=== PATIENT | male | born 1960 | race Caucasian/White ===

== ENCOUNTER 2017-01-02 14:04 | Outpatient (CLI) | payer OTHER ==
--- NOTE | 2017-01-02 15:39 | DIAGNOSTIC IMAGING REPORT ---
PROCEDURE: CT THORAX WITHOUT CONTRAST INDICATION: CHEST NODULE TECHNIQUE: Noncontrast axial images were obtained of the chest with coronal and sagittal reformations. COMPARISON: Chest CT 12/18/2015. FINDINGS: Stable 3 mm peripheral right upper lobe (image 28) and 5 mm right middle lobe nodules. No adenopathy or effusion. Mild atherosclerosis of the aorta and the coronaries. Normal heart size. Stable thyroid nodules. Gastric sleeve procedure. Stable mild upper thoracic spine compression fractures. Moderate degenerative changes. IMPRESSION: 1. Stable 3 mm right upper lobe and 5 ml right middle lobe nodules, likely postinflammatory. Recommend follow-up chest CT in 1 year.
--- NOTE | 2017-01-02 16:02 | DIAGNOSTIC IMAGING REPORT ---
PROCEDURE: US SOFT TISSUE THYR/NECK/HEAD INDICATION: MULTI THYROID NODULES TECHNIQUE: Mendoza scale and color Doppler sonographic images of the thyroid gland were obtained. COMPARISON: Thyroid ultrasound 12/24/2015. FINDINGS: RIGHT LOBE: Measures 5.3 x 2.7 x 2.2 cm. There is a at 2.5 x 1.9 x 1.9 cm complex nodule, primarily hypoechoic and solid with a central cystic component (previously 2.3 x 1.9 x 1.9 cm). There is also stable 4 mm hypoechoic nodule in the upper pole. LEFT LOBE: Measures 4.6 x 2.3 x 1.6 cm. There is a 1 cm solid nodule in the upper pole (previously 0.9 cm). ISTHMUS: 1.3 cm solid nodule (previously 1.1 cm). IMPRESSION: 1. Multinodular thyroid gland with minimal progression of some of the nodules.
== END 2017-01-02 23:00 ==
LOC: US SRH 14:04
DX: R91.8 Other nonspecific abnormal finding of lung field (principal); E04.2 Nontoxic multinodular goiter